=== PATIENT | male | born 1950 | race Caucasian/White ===

== ENCOUNTER 2018-12-22 21:22 | Emergency (ER) | payer MEDICARE, BC ==
[~2018-12-22] VITALS: Ht 175.3 cm; Wt 96.6 kg
--- NOTE | 2018-12-22 21:56 | PHYS DOC ---
Past History Additional Past Medical Histor: gout, high cholesterol, prostate cancer Smoking: Non-smoker Alcohol Use: Occasionally Drug Use: None Adult General Chief Complaint Chief Complaint: ANIMAL BITE HPI HPI Patient is a 68-year-old male presents complaining of left hand dog bite. He was in by his own dog as he was trying to separate it from others when food was present. Dog's vaccines are up-to-date. Patient is right-hand dominant. He was bitten on the index finger. Bleeding is controlled with pressure. This happened approximately 15 minutes prior to arrival. Pain is mild to moderate in intensity. No radiation of the discomfort.[] Review of Systems Review of Systems Constitutional: Denies fever or chills [] Eyes: Denies change in visual acuity, redness, or eye pain [] HENT: Denies nasal congestion or sore throat [] Respiratory: Denies cough or shortness of breath [] Cardiovascular: No chest pain or palpitations[] GI: Denies abdominal pain, nausea, vomiting, bloody stools or diarrhea [] : Denies dysuria or hematuria [] Musculoskeletal: Denies back pain or joint pain [] Integument: See history of present illness[] Neurologic: Denies headache, focal weakness or sensory changes [] Endocrine: Denies polyuria or polydipsia [] All other systems were reviewed and found to be within normal limits, except as documented in this note. Allergies Allergies Allergies Coded Allergies Type Severity Reaction Last Updated Verified No Known Drug Allergies 12/22/18 No Physical Exam Physical Exam Constitutional: Well developed, well nourished, no acute distress, non-toxic appearance. [] HENT: Normocephalic, atraumatic, bilateral external ears normal, oropharynx moist, no oral exudates, nose normal. [] Eyes: PERRLA, EOMI, conjunctiva normal, no discharge. [] Neck: Normal range of motion, no tenderness, supple, no stridor. [] Cardiovascular:Heart rate regular rhythm, no murmur [] Lungs & Thorax: Bilateral breath sounds clear to auscultation [] Abdomen: Not examined. [] Skin: Warm, dry, no erythema, no rash. [] Back: No tenderness, no CVA tenderness. [] Extremities: Left index finger has a bite on both the dorsal and ventral surfaces. This is to the distal phalanx. FDS, FDP, and extensor mechanisms are intact. There is no active bleeding. 2 point scrum urination is less than 5 mm. Capillary refills less than 2 seconds. The other 3 extremities show: No tenderness, no cyanosis, no clubbing, ROM intact, no edema. [] Neurologic: Alert and oriented X 3, normal motor function, normal sensory function, no focal deficits noted. [] Psychologic: Affect normal, judgement normal, mood normal. [] EKG EKG [] Radiology/Procedures Radiology/Procedures Hand/finger x-ray shows no evidence of a fracture, dislocation, nor foreign body[] Course & Med Decision Making Course & Med Decision Making Pertinent Labs and Imaging studies reviewed. (See chart for details) ED course: Patient arrived, was placed in bed, in tolerated exam well. He was transported to and from radiology with any consultations. Wound was repaired with any consultations. After return of imaging findings, these were discussed with the patient voiced understanding. He received antibiotics while in the em ergency department. He was discharged in improved condition. Medical decision making: There is no evidence of retained foreign body. No evidence of ligamentous or tendinous injury. No evidence of neurologic or vascular compromise. No open fracture.[] Dragon Disclaimer Dragon Disclaimer This electronic medical record was generated, in whole or in part, using a voice recognition dictation system. Departure Departure: Impression: Primary Impression: Dog bite Disposition: 01 HOME, SELF-CARE Condition: IMPROVED Patient Instructions: Animal Bite, Sterile Tape Wound Closure Additional Instructions: Follow-up with your regular doctor in 2 days for a wound check. If you do not have regular doctor list of local clinics will be provided for you. Take the antibiotics as prescribed. Return to the ER if worsening pain, redness, purulent drainage, or any other concerns. Scripts Meloxicam (MELOXICAM) 7.5 Mg Tablet 7.5 MG PO DAILY for PAIN, #20 TAB Prov: MELYSSA ROSAS DO 12/22/18 Amoxicillin/Potassium Clav (AUGMENTIN 875-125 TABLET) 1 Each Tablet 1 TAB PO BID for dog bite, #14 TAB Prov: MELYSSA ROSAS DO 12/22/18 Laceration Repair Lac Repair Indication: Dog bite left index finger[] Procedure: The patient was placed in the appropriate position and the area was cleaned, closed with Steri-Strips and Mastisol. Total repaired wound length: Dorsal laceration was 1.5 cm, volar laceration was 1 cm Other Items: None The patient tolerated the procedure well Complications: None Problem Qualifiers Primary Impression: Dog bite Encounter type: initial encounter Qualified Codes: W54.0XXA - Bitten by dog, initial encounter MELYSSA ROSAS DO Dec 22, 2018 21:56
[2018-12-22] MEDS ORDERED: AMOXICILLIN/K CLAV 875/125MG TABLET. PO ONE (22:30)
[2018-12-22] MEDS ORDERED: AMOX1TAB61 PO (23:01)
[2018-12-22] MEDS ORDERED: MELO7.5T29 PO (23:01)
[2018-12-22 23:21] VITALS: BP 145/87
--- NOTE | 2018-12-23 04:36 | RAD ---
Left index finger 3 views. HISTORY: Dog bite 3 views were taken of the left index finger. There is not evidence of an acute fracture or osseous abnormality. IMPRESSION: 1. No acute fracture noted in the left index finger. Electronically signed by: Spencer Porter MD (12/23/2018 4:33 AM) [id number]
== END 2018-12-22 23:20 | disposition home or self-care (01) ==
LOC: ER 21:22
DX: S61.251A Open bite of left index finger without damage to nail, initial encounter (principal); E78.00 Pure hypercholesterolemia, unspecified; W54.0XXA Bitten by dog, initial encounter; Y93.89 Activity, other specified; Y92.89 Other specified places as the place of occurrence of the external cause; Y99.8 Other external cause status
CPT/HCPCS: 73140; 99284